=== PATIENT | male | born 2000 | race Caucasian/White ===

== ENCOUNTER 2018-05-11 03:47 | Emergency (ER) | payer OTHER ==
[2018-05-11 03:53] VITALS: TEMP 98.7
[2018-05-11 04:11] VITALS: BP 134/89; PULSE 100; RESP 18
== END 2018-05-11 04:35 | disposition left against medical advice (07) ==
LOC: EC 03:47
DX: Z02.9 Encounter for administrative examinations, unspecified (principal)